=== PATIENT | male | born 1940 | race Caucasian/White ===

== ENCOUNTER 2018-11-30 15:21 | Emergency (ER) | payer MEDICARE, OTHER ==
[2018-11-30 15:31] VITALS: BP 145/71; PULSE 77; RESP 18; TEMP 98.7
--- NOTE | 2018-11-30 15:49 | ED ---
Extremity Problem HPI - General Chief complaint: Extremity Problem,Nontraumatic Stated complaint: rt knee pain/fall Time Seen by Provider: 11/30/18 15:32 Source: patient Mode of arrival: ambulatory Limitations: no limitations - History of Present Illness Initial comments: Patient is an 78-year-old male presenting to the emergency Department with complaints of pain in his right knee has been ongoing for 1 week. Patient states approximately one week ago he was walking with his walker when his right knee buckled. Patient did not fall to the ground but has been having pain ever since. Patient has previous history of laparoscopic surgery of the right knee. No other surgeries. Patient denies fever, chills, other trauma to that right extremity. Patient has history of stroke approximately 2 years ago with left- sided weakness. Patient has no other complaints at this time. Upon arrival to ER, vital signs are stable. - Related Data Allergies Allergy/AdvReac Type Severity Reaction Status Date / Time No Known Allergies Allergy Verified 11/30/18 15:29 Review of Systems ROS Statement: Those systems with pertinent positive or pertinent negative responses have been documented in the HPI. ROS Other: All systems not noted in ROS Statement are negative. Past Medical History Past Medical History: Diabetes Mellitus History of Any Multi-Drug Resistant Organisms: None Reported Past Surgical History: Adenoidectomy, Appendectomy, Tonsillectomy Past Psychological History: No Psychological Hx Reported Smoking Status: Never smoker Past Alcohol Use History: None Reported Past Drug Use History: None Reported General Exam - General Exam Comments Initial Comments: GENERAL: Well-appearing, well-nourished and in no acute distress. Patient seated in wheelchair. HEAD: Atraumatic, normocephalic. EYES: Pupils equal round and reactive to light, extraocular movements intact, sclera anicteric, conjunctiva are normal. ENT: TMs normal, nares patent, oropharynx clear without exudates. Moist mucous membranes. NECK: Normal range of motion, supple without lymphadenopathy or JVD. LUNGS: Breath sounds clear to auscultation bilaterally and equal. No wheezes rales or rhonchi. HEART: Regular rate and rhythm without murmurs, rubs or gallops. ABDOMEN: Soft, nontender, normoactive bowel sounds. No guarding, no rebound. No masses appreciated. : Deferred EXTREMITIES: Patient has no pain with palpation of the right knee, pain with resisted extension. Neurovascular intact. No swelling. Normal range of motion, no pitting. No clubbing or cyanosis. NEUROLOGICAL: Cranial nerves II through XII grossly intact. Residual left-sided weakness secondary to stroke 2 years ago. PSYCH: Normal mood, normal affect. SKIN: Warm, Dry, normal turgor, no rashes or lesions noted. Limitations: no limitations Course Vital Signs 11/30/18 15:27 Temperature 98.7 F Pulse Rate 77 Respiratory 18 Rate Blood Pressure 145/71 O2 Sat by Pulse 99 Oximetry Medical Decision Making - Medical Decision Making Patient is a 78-year-old male presenting with right knee pain 1 week. Patient states his right knee buckled approximately one week ago when he was walking with his walker and he's been having pain since. Patient denies actually falling. On exam patient has no pain with palpation. Patient has pain with resisted extension. X-rays reveal no acute fractures or dislocations. Does show spurring at the patellar-femoral joint. Discussed with patient to use icing and/or heat to the area as well as Tylenol for pain relief. Follow-up with PCP if symptoms persist. Patient is stable for discharge at this time and he is in agreement with this plan of care. Return parameters were discussed with the patient and his and they both verbalized understanding. Case discussed with Dr. Lawler. Disposition Clinical Impression: Right anterior knee pain Disposition: HOME SELF-CARE Condition: Stable Instructions (If sedation given, give patient instructions): Knee Pain (ED) Additional Instructions: Please return to the Emergency Department if symptoms worsen or any other concerns. Use heat and/or ice to the area as well as Tylenol for pain control. Follow up with PCP as symptoms persisted for 1 week. Is patient prescribed a controlled substance at d/c from ED?: No Referrals: Doreen Davis MD [Primary Care Provider] - 1-2 days
--- NOTE | 2018-11-30 16:21 | XR ---
Right knee HISTORY: Trauma and pain for 1 week 3 views of the right knee No comparisons There is marginal spurring and joint space loss in the medial compartment. Bone mineralization mildly reduced. Alignment is normal. No fracture or dislocation. Vascular calcifications are noted. No siza ble joint effusion. Spurring also present at the patellofemoral joint. IMPRESSION: Osteoarthritis. Osteopenia.
== END 2018-11-30 16:50 | disposition home or self-care (01) ==
LOC: EC 15:21
DX: M25.561 Pain in right knee (principal); I69.354 Hemiplegia and hemiparesis following cerebral infarction affecting left non-dominant side; M76.9 Unspecified enthesopathy, lower limb, excluding foot
CPT/HCPCS: 99283